=== PATIENT | male | born 1945 | race Caucasian/White ===

== ENCOUNTER 2017-08-26 11:38 | Observation (INO) | payer OTHER ==
[2017-08-26] MEDS ORDERED: NS 500 ML IV ONE (12:20)
[2017-08-26] MEDS ORDERED: PANTOPRAZOLE SODIUM 80 MG in NS 100 ML IV ONE (12:20)
[2017-08-26 12:30] LABS: % IMMATURE GRANULYOCYTES 0.4 % (0.0-1.1); ABSOLUTE IMMATURE GRANULOCYTES 0.03 10^3/uL (0.00-0.10); ADD DIFF? NO; ADD MORPH? NO; ADD SCAN? NO; ATYPICAL LYMPHOCYTE FLAG 10 (0-99); FRAGMENT RBC FLAG 0 (0-99); HEMATOCRIT 23.5 % (40.0-51.0); LEFT SHIFT FLG 0 (0-99); LIPEMIA HEMOLYSIS FLAG 90 (0-99); MEAN CELL HEMOGLOBIN 34.9 pg (27.9-34.1); MEAN CELL VOLUME 102.6 fL (81.5-99.8); MEAN PLATELET VOLUME 10.4 fL (8.7-11.7); PLATELET CLUMPS FLAG 10 (0-99); PLATELET COUNT 163 10^3/uL (150-400); RED BLOOD CELL COUNT 2.29 10^6/uL (4.40-6.38); RED CELL DISTRIBUTION WIDTH 12.5 % (11.5-15.2)
[2017-08-26] MEDS ORDERED: PANTOPRAZOLE SODIUM 40 MG in NS 100 ML IV ONE (12:31)
--- NOTE | 2017-08-26 12:31 | EDPHY ---
H & P Time Seen by Provider: 08/26/17 11:56 HPI/ROS: HPI Black stool. 72-year-old male by private vehicle. He has a history of peptic ulcer disease. He also has a history of gastric bypass surgery. He is from [place]. He is currently traveling to [facility] where he will stay for the winter. He reports that he noticed black stools about 1 week ago. He has not had any significant abdominal pain associated with this. He reports that he could not get into his primary care physician to be seen in [place]. He reports that the black stools continued and were worse yesterday. He stopped in [place] to see his son who lives here and came to the emergency department because he has black stools have continued. This done tells me that he thinks he looks pale the patient denies being lightheaded. He does state he feels more fatigued. Denies gross bleeding per rectum. ROS: Constitutional: No fever, no chills. No weakness. Respiratory: No cough. No shortness of breath. Cardiac: No chest pain, no palpitations. Gastrointestinal: No abdominal pain, no vomiting, no diarrhea. As above. Genitourinary: No hematuria. No dysuria or increased frequency with urination. As above. Musculoskeletal: No back pain. No neck pain. No myalgias or arthralgias. Skin: No rashes. Neurological: No headache. No focal weakness or altered sensation. Past medical history: Bilateral knee replacements. Gastric bypass surgery. Cholecystectomy. Gastric ulcers. Social history: Denies alcohol. Nonsmoker. As above. Has a girlfriend in [place]. Physical Exam: General Appearance: Alert, no distress. Large man. Obese habitus. This patient is responding to questions appropriately and in full sentences. This patient appears well-hydrated and well-nourished. Eyes: Pupils equal and round no pallor or injection. No lid edema, erythema or injection. Respiratory: There are no retractions, lungs are clear to auscultation with good air movement bilaterally. Cardiovascular: Regular rate and rhythm. No murmur. Gastrointestinal: Abdomen is soft and nontender, no masses, bowel sounds normal. No focal tenderness at McBurney's point. No Sutherland sign. Black tarry stool on digital rectal exam. No gross blood. Neurological: Motor sensory function is grossly intact. Cranial nerves are normal. Gait is normal. Skin: Warm and dry, no rashes. Musculoskeletal: Neck is supple and nontender. Extremities are symmetrical. All joints range without pain or impingement. Psychiatric: No agitation. No depression. Database: EKG: Imaging: Procedures: Emergency department course: Vital signs reviewed. He is moderately hypertensive. Vital signs are otherwise normal. Two large poor IVs place.. He will be given 500 cc of IV normal saline over the next hour. He was given 40 mg of IV Protonix followed by a Protonix drip. Appropriate blood work sent to the lab. 1:35 p.m., patient re-evaluated. Hemoglobin of 8. Patient has been typed and screened. Resting comfortably at this time. Vital signs reviewed and are stable. Heart rate in the 60s. Results of his emergency department workup discussed with him and his son. Plan for admission and gastroenterology consultation reviewed. All of their questions were answered. 1:40 p.m., discussed case with on-call hospitalist. Patient accepted for admission to the step-down unit by Dr. Pavan Larson. Gastroenterology paged. 2:00 p.m., patient's remaining emergency department course under my care has been uneventful. Patient admitted to the step-down unit in stable condition. Gastroenterology to consult. 2:15 p.m., spoke with on-call technical rep Dr. Espinoza. He will see this patient on admission to the floor. Differential Diagnosis: The differential diagnosis on this patient includes but is not limited to upper versus lower gastrointestinal bleeding, peptic ulcer, duodenal ulcer, bleeding varices. This represents a partial list of diagnoses considered. These considerations are based on history, physical exam, past history, reassessment and diagnostic testing. Smoking Status: Former smoker Constitutional: Initial Vital Signs Temperature (C) 36.9 C 08/26/17 11:41 Heart Rate 65 08/26/17 11:41 Respiratory Rate 18 08/26/17 11:41 Blood Pressure 169/65 H 08/26/17 11:41 O2 Sat (%) 97 08/26/17 11:41 Allergies/Adverse Reactions: No Known Allergies Allergy (Unverified 08/26/17 11:41) Home Medications: Medication Instructions Recorded Pantoprazole Sodium [Protonix 40mg 40 mg PO BID #120 tab 08/27/17 (*)] Medical Decision Making - Data Points Laboratory Results: Laboratory Results 08/26/17 13:20 08/26/17 12:15 Medications Given: Discontinued Medications Sodium Chloride (Ns) 500 mls @ 0 mls/hr IV EDNOW ONE; Wide Open PRN Reason: Protocol Stop: 08/26/17 12:21 Last Admin: 08/26/17 12:46 Dose: 500 mls Pantoprazole Sodium 80 mg/ (Sodium Chloride) 100 mls @ 10 mls/hr IV Q10H ONE Stop: 08/26/17 22:19 Last Admin: 08/26/17 12:47 Dose: 100 mls Pantoprazole Sodium 40 mg/ (Sodium Chloride) 100 mls @ 200 mls/hr IV EDNOW ONE Stop: 08/26/17 13:00 Last Admin: 08/26/17 12:47 Dose: 100 mls Pantoprazole Sodium 80 mg/ (Sodium Chloride) 100 mls @ 10 mls/hr IV Q10H [facility] Stop: 02/22/18 14:29 Last Admin: 08/27/17 07:22 Dose: Not Given Pantoprazole Sodium (Protonix) 40 mg PO BID [facility] Stop: 02/23/18 08:59 Last Admin: 08/27/17 09:36 Dose: Not Given Departure - Departure Disposition: [facility] Acute Clinical Impression: Gastrointestinal bleeding, Anemia Condition: Fair
[2017-08-26 12:42] LABS: ALANINE AMINOTRANSFERASE 42 IU/L (21-72); ALBUMIN 3.2 g/dL (3.5-5.0); ALKALINE PHOSPHATASE 65 IU/L (38-126); ANION GAP 7 mEq/L (8-16); ASPARTATE AMINOTRANSFERASE 42 IU/L (17-59); BILIRUBIN,TOTAL 0.4 mg/dL (0.1-1.4); BILIRUBIN-CONJUGATED 0.3 mg/dL (0.0-0.5); BILIRUBIN-UNCONJUGATED 0.1 mg/dL (0.0-1.1); CALCIUM 8.6 mg/dL (8.5-10.4); CARBON DIOXIDE 27 mEq/l (22-31); CHLORIDE 102 mEq/L (97-110); CREATININE 0.9 mg/dL (0.7-1.3); GLOMERULAR FILTRATION RATE > 60; GLUCOSE 111 mg/dL (70-100); INR 1.06 (0.83-1.16); POTASSIUM 4.3 mEq/L (3.5-5.2); PROTIME(PATIENT) 13.7 SEC (12.0-15.0); SODIUM 136 mEq/L (134-144); TOTAL PROTEIN 5.7 g/dL (6.3-8.2)
[2017-08-26 12:43] LABS: APTT 22.5 SEC (23.0-38.0)
[2017-08-26] MEDS ORDERED: ONDANSETRON 4 MG/2 ML VIAL IVP PRN (14:19)
[2017-08-26] MEDS ORDERED: TEMAZEPAM 15 MG CAP PO PRN (14:19)
[2017-08-26] MEDS ORDERED: ACETAMINOPHEN 325 MG TAB PO PRN (14:19)
[2017-08-26] MEDS ORDERED: ONDANSETRON DISINTEGRATING 4 MG TAB PO PRN (14:19)
[2017-08-26] MEDS ORDERED: oxyCODONE IR 5 MG TAB PO PRN (14:19)
[2017-08-26] MEDS ORDERED: NS 1,000 ML IV SCH (14:30)
[2017-08-26] MEDS ORDERED: PANTOPRAZOLE SODIUM 80 MG in NS 100 ML IV SCH (14:30)
--- NOTE | 2017-08-26 15:17 | SOAPPROG ---
SOAP Progress Note Assessment/Plan: Assessment:plan: SEE FULL CONSULT 72 y/o male with gastric bypass and 5 days melena last episode 2 days ago, low Hb, elevated BUN c/w UGI bleed PPI, EGD in am - EGD today if becomes unstable. PPI can be PO BID will write for some diet today, NPO post [place] Cecil Espinoza M.D. [phone] 08/26/17 15:15 Objective: Vital Signs Temp Pulse Resp BP Pulse Ox 36.2 C 66 16 159/80 H 100 08/26/17 14:35 08/26/17 14:35 08/26/17 14:35 08/26/17 14:35 08/26/17 14:35 08/25/17 08/26/17 08/27/17 05:59 05:59 05:59 Intake Total 600 Balance 600 PT 13.7 SEC (12.0-15.0) 08/26/17 12:15 INR 1.06 (0.83-1.16) 08/26/17 12:15 ICD10 Worksheet Patient Problems: Problems Problem Status Onset Anemia Acute Gastrointestinal bleeding Acute
--- NOTE | 2017-08-26 15:38 | GHP ---
[f rep st] HISTORY AND PHYSICAL DATE OF ADMISSION: 08/26/2017 CHIEF COMPLAINT: Black stools. HISTORY OF PRESENT ILLNESS: This is a 72-year-old man driving from [place] to [place], stopped in [place] to see his son, who presents with about 1 week of black tarry stools. He has a presumed hist ory of gastric ulcers; however, it does not sound like this has been seen on endoscopy. He does have a history of a gastric bypass which I believe is a Lita-en-Y. That was done about 6 years ago. He had an episode of melena 3 years ago, at that point it was recommended to start Prilosec which he too k for 14 days and has been off since. He has had a few endoscopies he tells me with dilation procedures, I assume because of a stricture. He also tells me that he has had adhesions at one point with the small bowel adhered to his abdominal wall. He is unable to eat more than 4-5 ounces of food at one time, given obstructive symptoms. For the last week he has had black tarry stools with no bright red blood per rectum. No hematemesis, no real change in his postprandial abdominal pain. He has felt dizzy, weak with no shortness of kaden ath or chest pain. He takes 1-2 aspirin a week. He takes ibuprofen about 3-4 times a year. PAST MEDICAL/SURGICAL HISTORY: 1. History of gastric bypass. 2. Possibly small bowel obstruction versus anastomotic stricture. 3. Cholecystectomy. 4. Hernia repair with mesh. 5. Reported history of ulcers, but I do not think this has been endoscopically proven. 6. Bilateral TKA. 7. Spinal surgery at L5 due to bulging disk. MEDICATIONS: Please see medication reconciliation. ALLERGIES: No known drug allergies. SOCIAL HISTORY: He very rarely drinks a glass of wine. He does not smoke. FAMILY HISTORY: Reviewed and noncontributory. REVIEW OF SYSTEMS: A 10-point review of systems is conducted and is negative except per history of p resent illness. He takes 1-2 aspirin a week. He takes ibuprofen about 3-4 times a year. PHYSICAL EXAM: VITAL SIGNS: Blood pressure 169/65, heart rate 65, respiration rate 18, saturating 9 7% on room air, temperature 36.9. GENERAL: The patient is a pleasant man who is resting comfortably in no acute distress. HEENT: Shows him to be normocephalic, atraumatic. CARDIOVASCULAR: Regular rate and rhythm. No murmurs, rubs, or gallops. PULMONARY: Lungs clear to auscultation bilaterally. ABDOMEN: Soft. He is obese. He has very mild tenderness to palpation in the epigastric to left s kylah. There is no guarding or rebound. No masses appreciated. SKIN: Shows no rash. : Exam show s no Santana. NEUROLOGIC: Shows him to be alert and oriented x3. He is moving all extremities. PSYC HIATRIC: Exam shows a normal mood and affect. LABORATORY: Hemoglobin is 8, white count is 8, INR is 1, BUN is 26, FOBT is positive. DATA: I discussed this with Dr. Jones. IMPRESSION AND PLAN: A 72-year-old man with a slow upper gastrointestinal bleed. 1. Upper GI bleed: Subacute. At least 1 week. Hemodynamically stable with a very low hemoglobin. Dr. Villanueva has been consulted. Likely plans an upper endoscopy tomorrow. He is on a Protonix drip. This is a high-risk diagnosis. 2. Acute blood loss anemia due to the above. 3. History of gastric bypass. 4. Chronic GI obstructive symptoms. 5. Code status is full. /[id number]/MODL
[2017-08-26 17:22] LABS: HEMATOCRIT 26.7 % (40.0-51.0)
--- NOTE | 2017-08-26 20:34 | GCON ---
[f rep st] CONSULTATION DATE OF CONSULTATION: 08/26/2017 REFERRING PHYSICIAN: Dr. Larson INDICATION FOR CONSULTATION: Posthemorrhagic anemia with melena, presumed upper GI bleed. HISTORY OF PRESENT ILLNESS: The patient is a pleasant 72-year-old male who has a past medical histor y significant for gastric bypass with a history of subsequent ulcerations and upper GI bleed, who was on a road trip going from [place] to [place], who had approximately 5 days of black tarry stools, of which the last bowel movement was approximately 1-1/2 to 2 days ago. He had multiple episodes on the first day and then the most recent was a formed black stool approximately 1-1/2 to 2 days ago. Ernestine barrera does take a baby aspirin a couple times a week. He was having some dyspnea on exertion and some sh ortness of breath, though he denied any chest pain, diaphoresis, or palpitations. He has his son and [id number] in [place]. He stopped for a brief visit and was noted to be somewhat pale. He was recommended to come in for evaluation and noted to have significant decreased hemoglobin and hematoc rit, elevated BUN/creatinine ratio, and history consistent with upper GI bleed. He is being admitted for the above and I am called to help evaluate and treat in that regard. PAST MEDICAL/SURGICAL HISTORY: Obesity, status post gastric bypass surgery, history of ulcerations, status post bypass surgery, likely anastomotic ulcerations, cholecystectomy prior to bypass, hernia r epair with mesh. He has bilateral knee replacements, L5 surgery. MEDICATIONS: At home: Baby aspirin. ALLERGIES: No known drug allergies. SOCIAL HISTORY: He started to drink red wine 2 years ago when he had the gastric bypass because he w as told it was good for that, but it gave him some discomfort, so he stopped it recently. He quit sm oking tobacco 35 years ago. FAMILY HISTORY: His father of colon cancer at 86. There is no other known colon cancer or colo n polyps to his knowledge. He did have a colonoscopy a little over 10 years ago and is due again. REVIEW OF SYSTEMS: A complete review of systems was performed and is negative other than noted in th e HPI. PHYSICAL EXAMINATION: GENERAL: Well-developed, well-nourished, overweight male in no acute distress . He is sitting in his bed comfortably. VITAL SIGNS: Blood pressure is 131/66, his pulse is 64, re spirations are 16. He is 96% on room air. HEENT: Eyes: Anicteric. LEXI, EOMI. Mouth: No lesion s. Moist mucous membranes. NECK: Supple. Full range of motion. No JVD. BACK: No spine tenderne ss. No CVA tenderness. LUNGS: Clear to auscultation. CARDIAC: S1, S2. Regular rate and rhythm. No murmurs, rubs or gallops appreciated. ABDOMEN: Bowel sounds are normal pitch and frequency. Ab domen is soft. He has minimal discomfort in his epigastric area to deep palpation. No rebound. No guarding. I do not appreciate hepatosplenomegaly. EXTREMITIES: No cyanosis, clubbing, or edema. N EUROLOGIC: Cranial nerves intact. SKIN: No stigmata of advanced liver disease. No rashes. LABORATORY DATA: From today, WBC 8.19, hemoglobin 8.0, hematocrit 23.5, MCV is elevated at 102.6, RD W is normal at 12.5, platelet count is 163. His prothrombin time is 13.7, INR 1.06, PTT 22.5. Sodiu m 136, potassium 4.3, chloride 102, bicarb 27, BUN 26, creatinine 0.9, glucose 111, calcium 8.6, bili tobar 0.4, AST 42, ALT 42, alkaline phosphatase 65, total protein 5.7, albumin 3.2. Stool occult blo od was positive. ASSESSMENT: Post hemorrhagic anemia and melena in a patient with known gastric bypass and history of presumed anastomotic ulcers who has been taking a baby aspirin a few times a week. ASSESSMENT AND PLAN: 1. Posthemorrhagic anemia. 2. Presumed upper gastrointestinal bleed. 3. Gastric bypass. 4. Family history of colon cancer at an advanced age. RECOMMENDATIONS: 1. PPI therapy. Once IV is finished, he can do PPI p.o. twice daily. 2. EGD scheduled potentially for tomorrow morning. If he becomes unstable, can perform tonight. I suspect his bleeding ceased a few days ago. 3. Will likely need PPI therapy for approximately 8 weeks pending results of EGD. 4. Recommend outpatient screening colonoscopy. This can be performed in [place]. 5. Serial H and H's. 6. No need for transfusion at present. 7. Further recommendations to follow results of above and clinical course. Thank you very much for allowing me to participate in this patient's health care. Please do not hesi treadwell to call me with any questions. Copy requested to: Dr. Neo Sam /[id number]/MODL
[2017-08-26 20:45] LABS: HEMATOCRIT 19.5 % (40.0-51.0)
[2017-08-26 20:46] LABS: HEMOGLOBIN 6.4 g/dL (13.7-17.5)
[2017-08-27 04:45] LABS: HEMATOCRIT 25.1 % (40.0-51.0); HEMOGLOBIN 8.5 g/dL (13.7-17.5)
[2017-08-27 05:42] LABS: % IMMATURE GRANULYOCYTES 0.4 % (0.0-1.1); ABSOLUTE IMMATURE GRANULOCYTES 0.03 10^3/uL (0.00-0.10); ADD DIFF? NO; ADD MORPH? NO; ADD SCAN? NO; ATYPICAL LYMPHOCYTE FLAG 0 (0-99); FRAGMENT RBC FLAG 0 (0-99); HEMATOCRIT 25.2 % (40.0-51.0); HEMOGLOBIN 8.4 g/dL (13.7-17.5); LEFT SHIFT FLG 0 (0-99); LIPEMIA HEMOLYSIS FLAG 80 (0-99); MEAN CELL HEMOGLOBIN 32.6 pg (27.9-34.1); MEAN CELL HEMOGLOBIN CONCENTR. 33.3 g/dL (32.4-36.7); MEAN CELL VOLUME 97.7 fL (81.5-99.8); MEAN PLATELET VOLUME 10.2 fL (8.7-11.7); PLATELET CLUMPS FLAG 0 (0-99); PLATELET COUNT 132 10^3/uL (150-400); RED BLOOD CELL COUNT 2.58 10^6/uL (4.40-6.38); RED CELL DISTRIBUTION WIDTH 15.4 % (11.5-15.2)
[2017-08-27 07:33] LABS: ANION GAP 6 mEq/L (8-16); CALCIUM 7.9 mg/dL (8.5-10.4); CARBON DIOXIDE 28 mEq/l (22-31); CHLORIDE 105 mEq/L (97-110); CREATININE 0.8 mg/dL (0.7-1.3); GLOMERULAR FILTRATION RATE > 60; GLUCOSE 106 mg/dL (70-100); POTASSIUM 4.2 mEq/L (3.5-5.2); SODIUM 139 mEq/L (134-144)
[2017-08-27] MEDS ORDERED: PANTOPRAZOLE SODIUM 40 MG TAB PO SCH (09:00)
[2017-08-27] MEDS ORDERED: MIDAZOLAM 2 MG/2 ML VIAL ONE (09:20)
[2017-08-27] MEDS ORDERED: fentaNYL 100 MCG/2 ML INJ ONE (09:20)
--- NOTE | 2017-08-27 09:29 | PDPROPOC ---
Sedation Plan of Care Sedation Plan of Care: vital signs stable, mental status noted ASA Classification: ASA 2 Planned drugs: fentanyl, midazolam Mallampati Score: Class 2 Mallampati Reference Image: Patient passed 3-3-2 rule?: Yes
[2017-08-27 12:02] LABS: HEMATOCRIT 23.7 % (40.0-51.0); HEMOGLOBIN 8.2 g/dL (13.7-17.5)
--- NOTE | 2017-08-27 12:03 | ASMTCMCOM ---
CM Note CM Note Notes: 72 year old male stopping in [place] to visit his son, on his way to [place] from [place] with complaints of tary stools. Admitted for GIB, Anemia, weakness. Has a hx of gastric bipass surgery, gastric ulcers, SBO vs stricture, feng, hernia repair, bilat TKA's, spinal surgery-L5. May not have discharge needs. CM to continue to follow. Date Signed: 08/27/2017 12:03 PM Electronically Signed By:Tami Cat LCSW
--- NOTE | 2017-08-27 15:06 | PDDCSUM ---
Discharge Summary Discharge Summary: DISCHARGE DIAGNOSES: -subacute upper GI bleed, no current evidence of active bleeding -post hemorrhagic anemia -history of gastric bypass surgery, bleeding is suspected however occurred from gastric fold or pouch remnant or nearby but no definite bleeding lesion seen, some mild mucosal irregularities that could potentially have blood days before CONSULTANTS: Dr. Cecil Espinoza PROCEDURES: Esophagogastroduodenoscopy HOSPITAL COURSE SUMMARY: This patient with a history of gastric bypass surgery and history of 1 episode of upper GI bleed from lesions unknown to us, comes in with 5 days of melena. He had taken some Advil. He does not drink alcohol. He remained hemodynamically stable. There is no nausea vomiting or abdominal pain no fevers. Nonsteroidal anti-inflammatory drugs were stopped, he was started on proton pump inhibitor therapy. He was hydrated and watched overnight. He remains hemodynamically stable and did not have further decrease in his hemoglobin from admission. On esophagogastroduodenoscopy he did not have any bleeding lesions, any evidence of recent blood, or any high risk lesions. There was some mucosal irregularities near his gastric bypass surgery site which could potentially have bled several days ago and had partial healing in the meantime. He did eat without quality and this did not trigger any nausea vomiting or retching or bleeding. At this point he is felt stable for discharge to home. However repeat blood count in 2 days and he knows to return to the ER for any evidence of further bleeding. Follow-up will be with Dr. 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 PENDING TEST RESULTS: A repeat CBC is to be done in 2 days with results faxed to Dr. Leal MEDICATION CHANGES: Addition of Protonix 40 mg twice daily for 8 weeks and the patient knows to continue for the full 8 weeks
[2017-08-27 16:17] VITALS: BP 132/78; PULSE 60; RESP 18; TEMP 97.5; O2SAT 99
== END 2017-08-27 16:09 | disposition home or self-care (01) ==
LOC: INTOOBSV 13:37 → F2N 14:34
PROVIDERS: ADMIT Internal Medicine; ATTEND Internal Medicine
PROC: 0DB68ZX Excision of Stomach, Via Natural or Artificial Opening Endoscopic, Diagnostic (ICD-10-PCS; principal; 2017-08-26)
PROC: 30233N1 Transfusion of Nonautologous Red Blood Cells into Peripheral Vein, Percutaneous Approach (ICD-10-PCS; 2017-08-26)
DX: K92.2 Gastrointestinal hemorrhage, unspecified (principal); K92.1 Melena; D62 Acute posthemorrhagic anemia; Z87.11 Personal history of peptic ulcer disease; Z96.651 Presence of right artificial knee joint; Z96.652 Presence of left artificial knee joint; Z80.0 Family history of malignant neoplasm of digestive organs
CPT/HCPCS: 36430; 43239; G0378; J2250; J3010; P9016; 96365; 96366